=== PATIENT | male | born 1955 | race Caucasian/White ===

== ENCOUNTER → 2018-08-25 | Outpatient (CLI) | payer BC ==
--- NOTE | 2018-08-25 20:41 | CONS ---
CONSULTATION DATE OF SERVICE: 08/25/2018 63-year-old gentleman who has been re-evaluated in [facility] for obstructive sleep apnea-hypopnea syndrome. HISTORY OF PRESENT ILLNESS/SLEEP WAKE EVALUATION: Last time the patient had CPAP titration in our office in the middle of 2011. At that time, he was recommended treatment with CPAP at the pressure of 12 cm of water for obstructive sleep apnea-hypopnea syndrome. The patient continued to use his CPAP equipment in the night but recently developed some problems with his machine. According to his , machine is very high and to the level that she can not sleep with the patient in the same room. Occasionally he started to snore with the machine and he is not sleeping as good as his sleep before. 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 On weekend or days when he is not working, he sleeps from 10 p.m. until 6 a.m. FALLING ASLEEP: No problems with falling asleep. No TV in bedroom. DURING SLEEP: During the sleep, he wakes up from sleep 4 times with 1 episode of nocturia. No history of hypnagogic hallucinations, sleep paralysis or cataplexy. PAST MEDICAL HISTORY: Changed. The patient developed hypertension and is on treatment for hypertension, knee problems, history of sinusitis. MEDICATIONS: Lisinopril, hydrochlorothiazide. SOCIAL HISTORY: Negative for smoking or using alcohol. PAST SURGICAL HISTORY: UPPP, also surgery on the left ankle for fracture and umbilical hernia. REVIEW OF SYSTEMS: Awakenings from sleep even on CPAP, snoring with CPAP, sometimes tiredness and sleepiness on the daytime. PHYSICAL EXAMINATION: During physical exam, a gentleman without distress BP 136/67, HR 101, RR 16, height 5 feet 9 inches, weight 310.5 pounds, which is increasing his weight comparing with the previous visit on 30 pounds. Oropharynx extremely low position of soft palate. Wide neck 19 1/3 inches in circumference. ABDOMEN: Obese. Neck Supple, no JVD. Thyroid is not palpable. LUNGS Clear to percussion and to auscultation. Good air exchange. No wheezing or rhonchi. HEART S1, S2 regular. No murmurs, gallops, or rubs. ABDOMEN: Obese, soft and nontender. Bowel sounds are present. No organomegaly appreciated. EXTREMITIES No clubbing or cyanosis. MOTHER BABY RN Awake, alert, and oriented X3. Cranial nerves 2 to 7 intact. There is no fasciculation or atrophy. noted. No focal deficits observed. IMPRESSION: 1. Obstructive sleep apnea-hypopnea syndrome for many years. The patient continued to use his CPAP every night. Usage of his machine is 100% of the time, average 6.06 hours per night. The patient increased his weight 30 pounds, developed snoring while using his CPAP. 2. Obesity, body mass index 45.7. 3. Hypertension. 4. History of sinusitis. 5. Knee problems. 6. Status post oral surgery for obstructive sleep apnea in the past. 7. Status post umbilical hernia repair. 8. Status post left ankle surgery for the fracture of the ankle. PLAN: 1. Repeat CPAP titration for reevaluation of effective CPAP pressure at the present time. Patient increased his weight about 30 pounds. Has snoring with CPAP and awakenings from sleep. Machine is noisy. We may need to replace the CPAP unit. 2. Losing weight. 3. Sleep hygiene with regular time bed for at least 8 hours. 4. Precautions related to driving. Patient is a fuel oil truck driver. 5. No driving if feeling any sleepiness. The patient is aware about civil and criminal liability for unsafe driving. 6. Sleep hygiene with regular time bed for at least 8 hours. Thank you very much for allowing me to participate in management of your patient. Sincerely, Joby Hess MD, PhD, FAASM Diplomat of [place] [employer] [employer] Extruder Operator Multiple of [facility] [place] MMODL / KRYSTYNAN: [id number] /
== END ==
LOC: SLEEP 15:31
PROVIDERS: ATTEND Internal Medicine
DX: G47.33 Obstructive sleep apnea (adult) (pediatric) (principal); E66.9 Obesity, unspecified; I10 Essential (primary) hypertension; R29.898 Other symptoms and signs involving the musculoskeletal system; Z87.39 Personal history of other diseases of the musculoskeletal system and connective tissue; Z98.890 Other specified postprocedural states; Z68.42 Body mass index [BMI] 45.0-49.9, adult; Z99.89 Dependence on other enabling machines and devices; Z79.899 Other long term (current) drug therapy
CPT/HCPCS: 99211

== ENCOUNTER → 2018-09-23 | Outpatient (CLI) | payer BC ==
--- NOTE | 2018-09-23 12:05 | CT ---
EXAMINATION TYPE: CT angio chest DATE OF EXAM: 09/23/2018 11:44 AM COMPARISON: None HISTORY: Abdominal aortic aneurysm, without rupture CT DLP: 1017 mGycm Automated exposure control for dose reduction was used. CONTRAST: CTA scan of the thorax is performed with IV Contrast, patient injected with 100 mL of Isovue 370, pul monary embolism protocol. . FINDINGS: LUNGS: The lungs are grossly clear, there is no concerning parenchymal mass or nodule identified. T here is no pleural effusion or pneumothorax seen. The tracheobronchial tree is patent. Pain groundgl ass changes are most typical of atelectasis. MEDIASTINUM: There is satisfactory enhancement of the pulmonary artery and its branches, there is no CT evidence for pulmonary embolism. There are no greater than 1 cm hilar or mediastinal lymph nodes. AORTA: At the level of the annulus the aorta measures 3.4 cm. at the level of the aortic sinus of Valsalva aorta measures 4.4 cm At the sinotubular junction aorta measures 3.6 cm At the level the mid ascending aorta measures 4.2 cm Distal ascending aorta measures 3.9 cm Descending thoracic aorta is of normal course and caliber. There is mild ectasia of the aorta with no significant atherosclerotic changes. OTHER: Hepatic steatosis noted. Hypodensity within the kidneys too small to characterize but likely related to simple cysts IMPRESSION: 1. Aortic sinus and measures 4.4 cm slightly prominent compared to the normal diameter (2.9 - 4.2). Remaining portion of the aorta demonstrates very mild prominence of the ascending aorta measuring 4.2 cm compatible with mild aneurysmal dilation.
== END ==
LOC: RADCTMAIN 10:41
PROVIDERS: ATTEND Internal Medicine Cardiovascular Disease
DX: I71.2 Thoracic aortic aneurysm, without rupture (principal)
CPT/HCPCS: 71275; Q9967

== ENCOUNTER → 2018-10-21 | Outpatient (CLI) | payer BC ==
--- NOTE | 2018-10-21 15:49 | XR ---
EXAMINATION TYPE: XR sinus DATE OF EXAM: 10/21/2018 CLINICAL HISTORY: Nasal congestion per order. TECHNIQUE: Parker, Foster, and lateral image of the skull are obtained. COMPARISON: None. FINDINGS: There is nonformed or hypoplastic left frontal sinus The paranasal sinuses including the ri ght frontal and bilateral maxillary sinuses appear well aerated without suspicious abnormal opacifica tion or air-fluid levels. Orbital floors and mayfield are intact. Facial bones appear intact. IMPRESSION: No convincing radiographic evidence for acute paranasal sinusitis.
== END | disposition home or self-care (01) ==
LOC: RADXRYALE 15:27
PROVIDERS: ATTEND Nurse Practitioner Family
DX: R09.81 Nasal congestion (principal)
CPT/HCPCS: 70220

== ENCOUNTER → 2018-12-15 | Outpatient (CLI) | payer BC ==
--- NOTE | 2018-12-15 16:53 | PN ---
PROGRESS NOTE DATE OF SERVICE: 12/15/2018 This patient is a 63-year-old gentleman who has been followed in Sleep Center for treatment of obstructive sleep apnea-hypopnea syndrome. Recently he received a new CPAP unit, and this is his first visit with the new CPAP machine. He feels that when he is starting to use the machine, the pressure is too low for him because the machine starts from 5 cm of water. [place] Sleepiness Scale today is 4. He is able to use equipment every night. I checked his CPAP unit. Range of the pressure is from 5 to15. Most of the time the pressure is 11.8 cm of water. Usage is 100% of the time for more than 4 hours; average 6.1 hours per night. Leak is 13 L/minute, which is in very good range. Apnea-hypopnea index is only 3.0, which is absolutely normal. MEDICATIONS: 1. Lisinopril. 2. Hydrochlorothiazide. 3. Hydrocort on p.r.n. basis for pain. PHYSICAL EXAMINATION: GENERAL: A pleasant patient in no distress. VITAL SIGNS: BP 107/70, HR 99, RR 16, weight 305 pounds, temperature 97.9, oxygen saturation at room air 93%. HEENT: PERRLA, EOMI. Evaluation of oropharynx showed tongue protrudes midline. Extremely low position of soft palate. Mallampati IV. NECK: Supple. No JVD. Thyroid is not palpable. LUNGS: Clear to percussion and to auscultation. Good air exchange. No wheezing or rhonchi. HEART: S1, S2 regular. No murmurs, gallops or rubs. ABDOMEN: Slightly obese. EXTREMITIES: No clubbing or cyanosis. BENDING MACHINE SET UP OPERATOR: Awake, alert, and oriented X3. Cranial nerves 2 to 7 intact. There is no fasciculation or atrophy. noted. No focal deficits observed. IMPRESSION: 1. Obstructive sleep apnea-hypopnea syndrome. Patient demonstrated 100% compliance with treatment, benefitting from treatment. 2. Obesity. 3. Hypertension. 4. History of sinusitis. 5. Knee problems. 6. Status post oral surgery for obstructive sleep apnea in the past. 7. Status post umbilical hernia repair. 8. Status post left ankle surgery for fracture of the ankle in the past. PLAN: 1. I will increase the range of pressure. It will be from 8 to 15 cm of water. 2. Humidity increased to level 7. 3. The patient will continue to use CPAP equipment every night for the whole night. 4. Sleep hygiene with regular time in bed for 7-1/2 to 8 hours. 5. No driving if feeling any sleepiness. 6. We will maintain all necessary prescriptions for the full-face mask, tubes, filters. Thank you very much for allowing me to participate in the management of your patient. Sincerely, Joby Hess MD, PhD, FAASM Diplomat of [place] [employer] [place] [employer] Track Laborer of [facility] [place] MMODL / IJN: [id number] /
== END | disposition home or self-care (01) ==
LOC: SLEEP 15:09
PROVIDERS: ATTEND Internal Medicine
DX: G47.33 Obstructive sleep apnea (adult) (pediatric) (principal); E66.9 Obesity, unspecified; I10 Essential (primary) hypertension; M25.9 Joint disorder, unspecified; Z87.09 Personal history of other diseases of the respiratory system; Z99.89 Dependence on other enabling machines and devices; Z98.890 Other specified postprocedural states; Z79.899 Other long term (current) drug therapy

== ENCOUNTER → 2019-06-22 | Outpatient (CLI) | payer BC ==
[2019-06-22 15:04] LABS: African American GFR (CKD) >90 (>60 ml/min/1.73 sqM); Blood Urea Nitrogen 18 mg/dL (9-20)
--- NOTE | 2019-06-23 03:36 | CT ---
EXAMINATION TYPE: CT angio chest DATE OF EXAM: 06/22/2019 COMPARISON: 09/23/2018 HISTORY: 64-year-old male Thoracic aortic aneurysm. TECHNIQUE: Contiguous axial scanning of the chest performed with IV Contrast, patient injected with 1 00 mL of Isovue 370. Coronal/sagittal MIP reconstructions performed. 3-D reconstructions generated on a dedicated independent workstation. CT DLP: 810.4 mGycm Automated exposure control for dose reduction was used. FINDINGS: Heart normal size without pericardial effusion. Aortic root mildly aneurysmal at 4.1 cm, unchanged. Ascending aorta aneurysmal at 4.5 cm, measuring 4.7 cm, previously, unchanged. Proximal arch aneurysmal at 4.1 cm, measuring 4.4 cm, previously, unchanged. Upper descending thoracic aorta aneurysmal at 4.0 cm, stable. Mid descending thoracic aorta mildly aneurysmal at 3.0 cm, stable. Lower descending thoracic aorta is ectatic at 2.9 cm, stable. Upper abdominal aorta ectatic at 2.7 cm. No aortic dissection. There is variant direct takeoff of the left vertebral artery directly from the aortic arch. Scattered nonenlarged mediastinal lymph nodes are unchanged. No thoracic lymphadenopathy by CT size c riteria. Evaluation of the lungs shows dependent atelectasis. Mild diffuse bronchial wall thickening could rep resent bronchitis or asthma or chronic change. No consolidation or pleural effusion. Visualized upper abdomen shows a stable 1.2 cm cortical cyst upper pole right kidney. Bones: Multiple old healed right-sided rib fracture deformities. IMPRESSION: ANEURYSMAL THORACIC AORTA (AORTIC ROOT 4.1 CM, ASCENDING 4. 5 CM, PROXIMAL ARCH 4.1 CM, AND DESCENDIN G MEASURING UP TO 4.0 CM) WITH MEASUREMENTS RELATIVELY UNCHANGED FROM PRIOR.
== END | disposition home or self-care (01) ==
LOC: RADCTMAIN 14:25
PROVIDERS: ATTEND Internal Medicine Cardiovascular Disease
DX: I71.2 Thoracic aortic aneurysm, without rupture (principal)
CPT/HCPCS: 82565; 84520; 71275; 36415; Q9967

== ENCOUNTER 2020-08-01 07:27 | Day surgery (SDC) | payer BC ==
[2020-07-31 08:32] VITALS: BMI 42.3
[~2020-08-01 07:27] MED LIST: LACTATED RINGERS 1,000 ML IV SCH; LIDOCAINE 1% (10MG/ML) FOR IV START INTRADERMA PRN
[2020-08-01 07:54] VITALS: RESP 18; TEMP 97
[2020-08-01 08:00] LABS: Glucose,Whole Blood 153 mg/dL (75-99)
--- NOTE | 2020-08-01 08:02 | P.GSHP ---
History of Present Illness H&P Date: 08/01/20 Chief Complaint: Screening colonoscopy This a 65-year-old male who presents today for screening colonoscopy. Patient denies a significant GI complaints. Past Medical History Past Medical History: Diabetes Mellitus, Hypertension, Sleep Apnea/CPAP/BIPAP Additional Past Medical History / Comment(s): USES C-PAP History of Any Multi-Drug Resistant Organisms: None Reported Past Surgical History: Hernia Repair, Orthopedic Surgery Additional Past Surgical History / Comment(s): ORIF LT ANKLE WITH HARDWARE REMOVAL. COLONOSCOPY. EYE SX CHILD Past Anesthesia/Blood Transfusion Reactions: Motion Sickness Smoking Status: Never smoker - Past Family History Mother Family Medical History: No Reported History Medications and Allergies Home Medications Medication Instructions Recorded Confirmed Type lisinopriL [Zestril] 5 mg PO HS 07/31/20 07/31/20 History metFORMIN HCL [Glucophage] 500 mg PO HS 07/31/20 07/31/20 History Allergies Allergy/AdvReac Type Severity Reaction Status Date / Time No Known Allergies Allergy Verified 08/01/20 07:43 Surgical - Exam Vital Signs Temp Pulse Resp BP Pulse Ox 97 F L 84 18 124/74 93 L 08/01/20 07:53 08/01/20 07:53 08/01/20 07:53 08/01/20 07:53 08/01/20 07:53 - General well developed, well nourished, no distress - Eyes PERRL - ENT normal pinna - Neck no masses - Respiratory normal expansion - Cardiovascular Rhythm: regular - Abdomen Abdomen: soft, non tender Results - Labs Abnormal Lab Results - Last 24 Hours (Table) 08/01/20 Range/Units 07:58 POC Glucose (mg/dL) 153 H (75-99) mg/dL Assessment and Plan Assessment: We'll perform screening colonoscopy.
[2020-08-01] MEDS ORDERED: PROPOFOL 10 MG/ML 20 ML VIAL IV ONE (08:05)
--- NOTE | 2020-08-01 08:16 | P.OP ---
Date of Procedure: 08/01/20 Preoperative Diagnosis: Screening colonoscopy Postoperative Diagnosis: Diverticulosis Procedure(s) Performed: Colonoscopy Anesthesia: MAC Surgeon: Wil Jasmine Pathology: none sent Condition: stable Disposition: PACU Description of Procedure: The patient's placed on the endoscopy table in the lateral position. He received IV sedation. Digital rectal exam was performed which revealed no rales. The flexible colonoscope was then placed patient anus passed throughout the entire colon. The ileocecal valve was visualized. The cecum, ascending and transverse colon appeared normal. The descending and sigmoid colon was examined. There is evidence of diverticular changes. Scope summer back the re ctum and this appeared normal. Scope was brought patient.
[2020-08-01 08:41] VITALS: BP 117/78; PULSE 73
== END 2020-08-01 09:00 | disposition home or self-care (01) ==
LOC: ORWHC2ENDO 07:27
PROVIDERS: ATTEND Surgery
DX: Z12.11 Encounter for screening for malignant neoplasm of colon (principal); K57.30 Diverticulosis of large intestine without perforation or abscess without bleeding; I10 Essential (primary) hypertension; G47.33 Obstructive sleep apnea (adult) (pediatric); Z99.89 Dependence on other enabling machines and devices; E11.9 Type 2 diabetes mellitus without complications; K21.9 Gastro-esophageal reflux disease without esophagitis; Z79.84 Long term (current) use of oral hypoglycemic drugs; Z79.899 Other long term (current) drug therapy; Z98.890 Other specified postprocedural states
CPT/HCPCS: J2704; G0121

== ENCOUNTER → 2020-08-14 | Outpatient (CLI) | payer BC ==
[2020-08-14 14:09] LABS: African American GFR (CKD) >90 (>60 ml/min/1.73 sqM); Blood Urea Nitrogen 24 mg/dL (9-20); Non-African American GFR(CKD) >90 (>60 ml/min/1.73 sqM)
--- NOTE | 2020-08-14 16:09 | CT ---
EXAMINATION TYPE: CT chest w con DATE OF EXAM: 08/14/2020 COMPARISON: 06/22/2019 HISTORY: 65-year-old male I71.4, thoracic aortic aneurysm follow up TECHNIQUE: Contiguous axial scanning of the chest after the administration of 100 mL of Isovue 300. Coronal/sagittal reconstructions performed. CT DLP: 627.8mGycm. Automatic exposure control utilized for a dose reduction. FINDINGS: Heart normal size without pericardial effusion. Aortic root mildly aneurysmal at 4.2 cm versus 4.1 cm, previously. Ascending aorta aneurysmal at 4.7 cm versus 4.5 cm, previously. Bovine configuration to the aortic arch. Additional direct takeoff of a hypoplastic left vertebral ar jocelyn directly from the aortic arch. Aneurysm upper descending thoracic aorta at 3.7 cm versus 3.8 cm, previously. Ectatic lower descending thoracic aorta at 2.9 cm, unchanged. The prior exam is remeasured at the same level as on the present study to provide consistency. No thoracic lymphadenopathy by CT size criteria. Mild strandy atelectasis in the lower lungs. No consolidation or pleural effusion. There appears to be underlying fatty infiltration of the liver. Underlying renal cysts measuring up t o 2.0 cm redemonstrated. Bones: Old healed right lateral rib fracture deformities. Mild degenerative disc disease within the t horacic spine. IMPRESSION: 1. Aneurysmal thoracic aorta redemonstrated, overall stable: 2. Aortic root 4.2 cm versus 4.1 cm, previously. 3. Ascending aorta 4.7 cm versus 4.5 cm, previously. 4. Upper descending thoracic aorta 3.7 cm versus 3.8 cm, previously.
== END | disposition home or self-care (01) ==
LOC: RADCTMAIN 13:23
PROVIDERS: ATTEND Internal Medicine Cardiovascular Disease
DX: I71.2 Thoracic aortic aneurysm, without rupture (principal); I71.4 Abdominal aortic aneurysm, without rupture
CPT/HCPCS: 82565; 84520; 71260; Q9967

== ENCOUNTER → 2020-08-21 | Outpatient (CLI) | payer BC ==
--- NOTE | 2020-08-21 20:38 | SFUN ---
SLEEP CENTER FOLLOW UP NOTE DATE OF SERVICE: 08/21/2020. ADDENDUM: 1. Rasheeda. 2. I discussed with the patient option to use a nasal strips also to improve his breathing through the nose while he is using CPAP. MMNURY / KRYSTYNAN: [id number] /
--- NOTE | 2020-08-21 20:53 | SFUN ---
SLEEP CENTER FOLLOW UP NOTE DATE OF SERVICE: 08/21/2020 This patient is a 65-year-old gentleman who has been followed in Sleep Center for treatment of obstructive sleep apnea-hypopnea syndrome. Patient successfully continues to use his CPAP equipment. Sometimes he feels that there is a leak from his full-face mask. Sometimes he feels a dry mouth, although he knows how to regulate the humidity and humidifier. He told me that he already tried to adjust it to the maximal level. [place] Sleepiness Scale today is 4. I checked his CPAP unit. CPAP pressure is in the range of 8 to 15. Average pressure is 11.9. Usage is 100% of nights, with average usage 6.2 hours per night. Leak is only 4 L/minute, which is perfect. Apnea-hypopnea index is only 0.7. [place] Sleepiness Scale is 4. MEDICATIONS: Metformin once a day, lisinopril/hydrochlorothiazide once a day, hydrocodone 5/325 several times a month. PHYSICAL EXAMINATION: GENERAL: A pleasant patient in no distress. VITAL SIGNS: BP 112/82, HR 90, RR 15, height 5 feet 9 inches, weight 298 pounds. Body mass index 44, temperature 97.3, oxygen saturation at room air 96%. HEENT: PERRLA, EOMI. Evaluation of oropharynx showed tongue protrudes midline. Extremely low position of soft palate. Mallampati IV. NECK: Supple. No JVD. Thyroid is not palpable. LUNGS: Clear to percussion and to auscultation. Good air exchange. No wheezing or rhonchi. HEART: S1, S2 regular. No murmurs, gallops or rubs. ABDOMEN: Obese. EXTREMITIES: No clubbing or cyanosis. BONE GRINDER: Awake, alert, and oriented X3. Cranial nerves 2 to 7 intact. There is no fasciculation or atrophy. noted. No focal deficits observed. IMPRESSION: 1. Obstructive sleep apnea-hypopnea syndrome. Patient demonstrated 100% compliance with treatment, benefitting from treatment. 2. Hypertension. 3. Obesity. 4. History of sinusitis. 5. Knee problems. 6. Status post oral surgery for obstructive sleep apnea in the past. 7. Status post umbilical hernia repair. 8. Status post left ankle surgery for fractured ankle in the past. PLAN: 1. Patient will continue to use PAP equipment every night for the whole night. 2. Sleep hygiene with regular time in bed for at least 7-1/2 to 8 hours. 3. Precautions related to driving. No driving if feeling sleepiness. 4. I will maintain all necessary prescription for PAP supplies including mask, tube, filters. 5. Watching weight. 6. No driving if feeling sleepiness. 7. Follow-up visit in 6 months or earlier if patient has any problems. I spent 25 minutes with the patient. Thank you very much for allowing me to participate in the management of your patient. Sincerely, Joby Hess MD, PhD, FAASM Diplomat of [place] [employer] [employer] Concrete Finishing Machine Operator of [facility] [place] MMODL / IJN: [id number] /
== END | disposition home or self-care (01) ==
LOC: SLEEP 14:14
PROVIDERS: ATTEND Internal Medicine
DX: G47.33 Obstructive sleep apnea (adult) (pediatric) (principal); I10 Essential (primary) hypertension; E66.9 Obesity, unspecified; M25.869 Other specified joint disorders, unspecified knee; Z98.890 Other specified postprocedural states; Z79.84 Long term (current) use of oral hypoglycemic drugs; Z79.899 Other long term (current) drug therapy; Z99.89 Dependence on other enabling machines and devices

== ENCOUNTER → 2021-02-06 | Outpatient (CLI) | payer BC ==
--- NOTE | 2021-02-06 20:41 | SFUN ---
SLEEP CENTER FOLLOW UP NOTE DATE OF SERVICE: 02/06/2021 This 65-year-old gentleman has been followed in Sleep Center for treatment of obstructive sleep apnea-hypopnea syndrome. The patient continues to use his CPAP equipment every night for the whole night. Sometimes he feels that there is a leak from the mask, which wakes him up. Otherwise, he sleeps well. [place] Sleepiness Scale today is 5, which is in normal range. I checked his CPAP unit. Range of the pressure is 8 to 15, automatic regimen. Average pressure of 13 cm of water. Usage is 30/30 nights for more than 4 hours, average 6.4 hours per night. Leak is 5 L/minute, which is totally normal range. Apnea-hypopnea index only 3.0, which is also normal. MEDICATIONS: Lisinopril, metformin, hydrocodone. PHYSICAL EXAMINATION: GENERAL: A pleasant patient in no distress. VITAL SIGNS: BP 104/71, HR 88, RR 12, height 5 feet 6-1/2 inches, weight 295.4 pounds, body mass index 44.2, temperature 97.1. Oxygen saturation at room air 95%. HEENT: PERRLA, EOMI. Evaluation of oropharynx showed tongue protrudes midline. Extremely low position of soft palate. Mallampati IV. NECK: Supple. No JVD. Thyroid is not palpable. LUNGS: Clear to percussion and to auscultation. Good air exchange. No wheezing or rhonchi. HEART: S1, S2 regular. No murmurs, gallops or rubs. ABDOMEN: Obese. EXTREMITIES: No clubbing or cyanosis. PROP AND EFFECTS DESIGNER: Awake, alert, and oriented X3. Cranial nerves 2 to 7 intact. There is no fasciculation or atrophy. noted. No focal deficits observed. IMPRESSION: 1. Obstructive sleep apnea-hypopnea syndrome. Patient demonstrated 100% compliance with treatment, benefitting from treatment. 2. Obesity. 3. Hypertension. 4. Sinusitis. 5. Knee problems. 6. Status post oral surgery for obstructive sleep apnea in the past. 7. Status post umbilical hernia repair. 8. Status post left ankle surgery for fracture of the ankle. PLAN: 1. Continue treatment with CPAP every night for the whole night. 2. Patient may continue to use a chin strap. 3. Patient will continue to use PAP equipment every night for the whole night. 4. Sleep hygiene with regular time in bed for at least 7-1/2 to 8 hours. 5. Precautions related to driving. No driving if feeling sleepiness. 6. I will maintain all necessary prescription for PAP supplies including mask, tube, filters. 7. Watching weight. 8. Follow-up visit in 6 months or earlier if patient has any problems. I spent more than 30 minutes with patient and doing documentation. Thank you very much for allowing me to participate in the management of your patient. Sincerely, Joby Hess MD, PhD, FAASM Diplomat of [place] [employer] [employer] Campaign Consultant of [facility] [place] MMODL / IJN: [id number] /
== END ==
LOC: SLEEP 14:14
PROVIDERS: ATTEND Internal Medicine
DX: G47.33 Obstructive sleep apnea (adult) (pediatric) (principal); E66.9 Obesity, unspecified; I10 Essential (primary) hypertension; J32.9 Chronic sinusitis, unspecified; M79.89 Other specified soft tissue disorders; Z98.890 Other specified postprocedural states; Z68.41 Body mass index [BMI] 40.0-44.9, adult; Z79.899 Other long term (current) drug therapy

== ENCOUNTER → 2022-01-13 | Outpatient (CLI) | payer BC ==
[2022-01-13 14:42] LABS: African American GFR (CKD) >90 (>60 ml/min/1.73 sqM); Blood Urea Nitrogen 28 mg/dL (9-20); Non-African American GFR(CKD) >90 (>60 ml/min/1.73 sqM)
--- NOTE | 2022-01-13 16:02 | CT ---
EXAMINATION TYPE: CT angio chest DATE OF EXAM: 01/13/2022 3:57 PM COMPARISON: 08/14/2020 HISTORY: F/U THORACIC AORTIC ANEURYSM CT DLP: 1720 mGycm Automated exposure control for dose reduction was used. CONTRAST: CTA scan of the thorax is performed without and with IV Contrast, patient injected with 100 mL of Iso shila 370, pulmonary embolism protocol. . FINDINGS: Heart normal size without pericardial effusion. Aortic root mildly aneurysmal at 4.2 cm versus 4.1 cm , previously. Ascending aorta aneurysmal at 4.7 cm versus 4.5 cm, previously. Bovine configuration to the aortic arch. Additional direct takeoff of a hypoplastic left vertebral artery directly from the aortic arch. Aneurysm upper descending thoracic aorta at 3.8 cm versus 3.8 cm, previously. Ectatic lo wer descending thoracic aorta at 2.9 cm, unchanged. The prior exam is remeasured at the same level as on the present study to provide consistency. No tho racic lymphadenopathy by CT size criteria Mild strandy atelectasis in the lower lungs. No consolidation or pleural effusion. There appears to b e underlying fatty infiltration of the liver. Osseous structures: Old healed right lateral rib fracture deformities. Mild degenerative disc disease within the thoracic spine. IMPRESSION: STABLE ANEURYSMAL DILATION OF THE THORACIC AORTA WITH A MAXIMAL DIMENSION OF 4.7 CM IN THE ASCENDING AORTA.
== END | disposition home or self-care (01) ==
LOC: RADCTMAIN 13:58
PROVIDERS: ATTEND Thoracic Surgery (Cardiothoracic Vascular Surgery)
DX: I71.2 Thoracic aortic aneurysm, without rupture (principal)
CPT/HCPCS: 82565; 84520; 71275; 36415; Q9967

== ENCOUNTER → 2022-07-16 | Outpatient (CLI) | payer BC ==
--- NOTE | 2022-07-16 15:04 | P.PN ---
Subjective DATE: 07/16/2022 FOLLOW UP VISIT. Patient with obstructive sleep apnea hypopnea syndrome return to sleep center for follow-up visit. Information from previous visit have been reviewed. Patient is using PAP equipment every night for the whole night, getting PAP supplies in time. The patient does not have significant problems with the mask, PAP unit and humidification. [place] sleepiness scale is 5, which is normal. I checked PAP unit. Air filter is in bad condition. PAP unit pressure 8-15, average 12.8 cm H2O. Usage is 100 % for more then 4 hours, average 5.9 hours per night. Leak is 0 l/m, which is perfect. Apnea Hypopnea Index is 2.8, which is normal. I checked information about apnea-hypopnea index for the last months and then some days there is a fluke duration over apnea-hypopnea index up to around 9. MEDICATIONS:1. Lisinopril-hydrochlorothiazide 20-25 mg once a day 2. Metformin 500 mg 4 tablets a day 3. Januvia During physical exam: GENERAL: A pleasant patient without any distress. VITAL SIGNS: BP 127/83, HR 76, RR 14 , weight 292.0, temperature 97.5, oxygen saturation at room air 95 % . HEENT: PERRLA, EOMI.low position of soft palate, Mallapati 4 . NECK: Supple. No JVD. LUNGS: Clear to percussion and to auscultation. Good air exchange. No wheezing or rhonchi. HEART: S1, S2 regular. ABDOMEN: Soft and nontender. Obese EXTREMITIES: No clubbing or cyanosis. SETTER OUT: Awake, alert, and oriented x3. No focal deficit. Impressions: 1. Obstructive sleep apnea-hypopnea syndrome. Patient demonstrated great compliance with treatment, benefiting from treatment. 2. Obesity. 3. Hypertension. 4. Diabetes mellitus. 5. Sinusitis. 6. Knee problems. 7. Status post surgical treatment for obstructive sleep apnea hypopnea syndrome in the past. 8. Status post umbilical hernia repair. 9. Status post left ankle surgical treatment for fracture. Plan: 1. Continue using PAP equipment every night for the whole night. I increased maximal level of pressure to 16 cm of water. 2. To change air filter at least 1-2 times per month. 3. PAP unit should stay lower then position of the head. 4. Advised patient to remove all remaining water from humidifier canister daily and make it dry after each usage. Refill canister with fresh distilled water before each usage. 5. Sleep hygiene with regular time in bed for at least 8 hours. 6. Precautions related to driving. No driving if feel any sleepiness. 7. I will maintain prescription for PAP supplies including mask, tube, filters. 8. Follow up visit in 6 months or earlier if patient has any problems. 9. Watching weight. Thank you very much for allowing me to participate in the management of your patient. Joby Hess MD, PhD, FAASM. Diplomat of [place] [employer], Sleep Medicine Board by [place] Public Administration Professor of [facility] [place]
== END | disposition home or self-care (01) ==
LOC: SLEEP 14:20
PROVIDERS: ATTEND Internal Medicine
DX: Z53.9 Procedure and treatment not carried out, unspecified reason (principal)
CPT/HCPCS: 99212

== ENCOUNTER → 2023-03-04 | Outpatient (CLI) | payer BC ==
--- NOTE | 2023-03-04 15:33 | P.PN ---
Subjective DATE: 03/04/2023 FOLLOW UP VISIT. Patient with obstructive sleep apnea hypopnea syndrome return to sleep center for follow-up visit. Information from previous visit have been reviewed. Patient is using PAP equipment every night for the whole night, getting PAP supplies in time. The patient does not have significant problems with the mask, PAP unit and humidification. [place] sleepiness scale is 5, which is normal. I checked information from PAP unit. PAP unit pressure 8-16, average 12.2 cm H2O. Usage is 100 % for more then 4 hours, average 6 hours per night. Leak is 0 l/m, which is in acceptable range. Apnea Hypopnea Index is 1.4, which is normal. Sometimes patient wakes up from sleep and feel that pressure is too high. MEDICATIONS:1. Losartan 5 mg once a day 2. Metformin 3. Lanuvia During physical exam: GENERAL: A pleasant patient without any distress. VITAL SIGNS: BP 104/62, HR 103, RR 16 , weight 296, temperature 97.0, oxygen saturation at room air 95% . HEENT: PERRLA, EOMI.low position of soft palate, Mallapati 4 . NECK: Supple. No JVD. LUNGS: Clear to percussion and to auscultation. Good air exchange. No wheezing or rhonchi. HEART: S1, S2 regular. ABDOMEN: Soft and nontender.[] EXTREMITIES: No clubbing or cyanosis. GRAIN BROKER AND MARKET OPERATOR: Awake, alert, and oriented x3. No focal deficit. Impressions: 1. Obstructive sleep apnea-hypopnea syndrome. Patient demonstrated great compliance with treatment, benefiting from treatment. 2. Diabetes mellitus, according to patient recent hemoglobin A1c 6.7. 3. Obesity, BMI 45.5. 4. Hypertension. 5. History of sinus problems. 6. History of knee problems. I changed range of the pressure in CPAP unit to 813 centimeters of water. Plan: 1. Continue using PAP equipment every night for the whole night. 2. To change air filter at least 1-2 times per month. 3. PAP unit should stay lower then position of the head. 4. Advised patient to remove all remaining water from humidifier canister daily and make it dry after each usage. Refill canister with fresh distilled water before each usage. 5. Sleep hygiene with regular time in bed for at least 8 hours. 6. Precautions related to driving. No driving if feel any sleepiness. 7. I will maintain prescription for PAP supplies including mask, tube, filters. 8. Watching and losing weight. 9. Follow up visit in 6 months or earlier if patient has any problems. Thank you very much for allowing me to participate in the management of your patient. Joby Hess MD, PhD, FAASM. Diplomat of [place], Sleep Medicine Board by [employer] Brush Head Maker of [facility] [place]
== END ==
LOC: 3 N SLEEP 14:31
PROVIDERS: ATTEND Internal Medicine
DX: G47.33 Obstructive sleep apnea (adult) (pediatric) (principal); E11.9 Type 2 diabetes mellitus without complications; E66.9 Obesity, unspecified; I10 Essential (primary) hypertension; J32.9 Chronic sinusitis, unspecified; Z68.42 Body mass index [BMI] 45.0-49.9, adult; Z99.89 Dependence on other enabling machines and devices; Z87.39 Personal history of other diseases of the musculoskeletal system and connective tissue; Z79.899 Other long term (current) drug therapy; Z79.84 Long term (current) use of oral hypoglycemic drugs
CPT/HCPCS: 99212

== ENCOUNTER → 2023-08-25 | Outpatient (CLI) | payer BC ==
--- NOTE | 2023-08-25 17:48 | P.PN ---
Subjective DATE: 08/25/2023 FOLLOW UP VISIT. Patient with obstructive sleep apnea hypopnea syndrome return to sleep center for follow-up visit. Information from previous visit have been reviewed. Patient is using PAP equipment every night for the whole night, getting PAP supplies in time. The patient does not have significant problems with the mask, PAP unit and humidification. [place] sleepiness scale is 8, which is normal. I checked information from PAP unit. PAP unit pressure 8-13, average 11.9 cm H2O. Usage is 100 % for more then 4 hours, average 6 hours per night. Leak is 0 l/m, which is in acceptable range. Apnea Hypopnea Index is borderline 5.2. MEDICATIONS:1. Metformin 500 mg 4 tablets a day 2. Januvia 100 mg once a day 3. Lisinopril/hydrochlorothiazide 20-25 mg once a day During physical exam: GENERAL: A pleasant patient without any distress. VITAL SIGNS: BP 118/78, HR 101, RR 16, weight 299.2, temperature 97.6, oxygen saturation at room air 95 % . HEENT: PERRLA, EOMI.low position of soft palate, Mallapati 4 . NECK: Supple. No JVD. LUNGS: Clear to percussion and to auscultation. Good air exchange. No wheezing or rhonchi. HEART: S1, S2 regular. ABDOMEN: Soft and nontender. Obese EXTREMITIES: No clubbing or cyanosis. MEDICAL COST CONSULTANT: Awake, alert, and oriented x3. No focal deficit. I increased range of the pressure in CPAP unit to 514 centimeters of water. Impressions: 1. Obstructive sleep apnea-hypopnea syndrome. Patient demonstrated great compliance with treatment, benefiting from treatment. 2. Diabetes mellitus. 3. Obesity, patient increased weight on 3 pounds comparing with previous visit. 4. Hypertension. 5. History of knee problems. 6. History of sinus problems. Plan: 1. Continue using PAP equipment every night for the whole night. 2. To change air filter at least 1-2 times per month. 3. PAP unit should stay lower then position of the head. 4. Advised patient to remove all remaining water from humidifier canister daily and make it dry after each usage. Refill canister with fresh distilled water before each usage. 5. Sleep hygiene with regular time in bed for at least 8 hours. 6. Precautions related to driving. No driving if feel any sleepiness. 7. I will maintain prescription for PAP supplies including mask, tube, filters. 8. Follow up visit in 6 months or earlier if patient has any problems. 9. Watching and losing weight. Thank you very much for allowing me to participate in the management of your patient. Joby Hess MD, PhD, FAASM. Diplomat of [employer], Sleep Medicine Board by [employer] Director Business Systems of [facility] [place]
== END ==
LOC: 3 N SLEEP 14:55
PROVIDERS: ATTEND Internal Medicine
DX: G47.33 Obstructive sleep apnea (adult) (pediatric) (principal); E11.9 Type 2 diabetes mellitus without complications; E66.9 Obesity, unspecified; I10 Essential (primary) hypertension; Z96.659 Presence of unspecified artificial knee joint; Z86.69 Personal history of other diseases of the nervous system and sense organs; Z99.89 Dependence on other enabling machines and devices; Z79.84 Long term (current) use of oral hypoglycemic drugs; Z79.899 Other long term (current) drug therapy
CPT/HCPCS: 99212

== ENCOUNTER → 2024-03-08 | Outpatient (CLI) | payer MEDICARE ==
[2024-03-08 14:29] VITALS: BP 109/73; PULSE 68; RESP 16; TEMP 98
--- NOTE | 2024-03-08 18:25 | P.PROGSL ---
Subjective DATE: 03/08/2024 FOLLOW UP VISIT. Patient with obstructive sleep apnea hypopnea syndrome return to sleep center for follow-up visit. Information from previous visit have been reviewed. Patient is using PAP equipment every night for the whole night, getting PAP supplies in time. The patient does not have significant problems with the mask, PAP unit and humidification. [place] sleepiness scale is 4, which is normal. I checked PAP unit. Heated humidifier does not work well PAP unit pressure 8-14, average 10.6 cm H2O. Usage is 100% for more then 4 hours, average 7 hours per night. Leak is 0 l/m, which is in acceptable range. Apnea Hypopnea Index is 6.1, which is normal. MEDICATIONS: Please see below During physical exam: GENERAL: A pleasant patient without any distress. VITAL SIGNS: Please see below. HEENT: PERRLA, EOMI.low position of soft palate, Mallapati 4 . NECK: Supple. No JVD. LUNGS: Clear to percussion and to auscultation. Good air exchange. No wheezing or rhonchi. HEART: S1, S2 regular. ABDOMEN: Soft and nontender.[] EXTREMITIES: No clubbing or cyanosis. TAR MAN: Awake, alert, and oriented x3. No focal deficit. Impressions: 1. Obstructive sleep apnea-hypopnea syndrome. Patient demonstrated great compliance with treatment, benefiting from treatment. 2. Obesity, BMI 41.5, patient lost 25 pounds comparing with previous visit. 3. Hypertension. 4. Diabetes mellitus. 5. History of sinuses problems. 6. History of knee problems. Plan: 1. Continue using PAP equipment every night for the whole night. Prescription to replace CPAP unit, because heated humidifier does not work well and CPAP unit is old. 2. To change air filter at least 1-2 times per month. 3. PAP unit should stay lower then position of the head. 4. Advised patient to remove all remaining water from humidifier canister daily and make it dry after each usage. Refill canister with fresh distilled water before each usage. 5. Sleep hygiene with regular time in bed for at least 8 hours. 6. Precautions related to driving. No driving if feel any sleepiness. 7. I will maintain prescription for PAP supplies including mask, tube, filters. 8. Watching weight. 9. Follow up visit in 1-3 months after patient will get new CPAP unit. Thank you very much for allowing me to participate in the management of your patient. Joby Hess MD, PhD, FAASM. Diplomat of [place] [employer], Sleep Medicine Board by [employer] Bed Spring Maker of [facility] [place] Objective - Vital Signs Vital Signs: Vital Signs Temp 98 F 03/08/24 14:27 Pulse 68 03/08/24 14:27 Resp 16 03/08/24 14:27 BP 109/73 03/08/24 14:27 Pulse Ox 97 03/08/24 14:27 FiO2 Intake & Output 03/07/24 03/08/24 03/08/24 18:59 06:59 18:59 Weight 123.831 kg Home Medications: Home Medications Medication Instructions Recorded Confirmed Type lisinopriL [Zestril] 5 mg PO HS 07/31/20 03/08/24 History metFORMIN HCL [Glucophage] 500 mg PO HS 07/31/20 03/08/24 History Aspirin EC [Ecotrin Low Dose] 81 mg PO DAILY 03/08/24 03/08/24 History sitaGLIPtin [Januvia] 100 mg PO DAILY 03/08/24 03/08/24 History
== END ==
LOC: 3 N SLEEP 13:52
PROVIDERS: ATTEND Internal Medicine
DX: G47.33 Obstructive sleep apnea (adult) (pediatric) (principal); E66.9 Obesity, unspecified; I10 Essential (primary) hypertension; E11.9 Type 2 diabetes mellitus without complications; Z99.89 Dependence on other enabling machines and devices; Z87.39 Personal history of other diseases of the musculoskeletal system and connective tissue; Z87.09 Personal history of other diseases of the respiratory system; Z68.41 Body mass index [BMI] 40.0-44.9, adult; Z79.84 Long term (current) use of oral hypoglycemic drugs; Z79.899 Other long term (current) drug therapy
CPT/HCPCS: 99212

== ENCOUNTER → 2025-01-31 | Outpatient (CLI) | payer MEDICARE ==
[2025-01-31 14:50] VITALS: BP 134/86; PULSE 61; RESP 16; TEMP 97.6
--- NOTE | 2025-01-31 15:21 | P.PROGSL ---
Subjective DATE: 01/31/2025 FOLLOW UP VISIT. Patient with obstructive sleep apnea hypopnea syndrome return to sleep center for follow-up visit. Information from previous visit have been reviewed. Patient is using PAP equipment every night for the whole night, getting PAP supplies in time. The patient does not have significant problems with the mask, PAP unit and humidification. [place] sleepiness scale is 2, which is normal. I checked information from PAP unit. PAP unit pressure 8-14, average 11.7 cm H2O. Usage is 100% for more then 4 hours, average 6.7 hours per night. Leak is perfect 0 l/m. Apnea Hypopnea Index is 2.9, which is normal. MEDICATIONS have been reviewed, please see below. During physical exam: GENERAL: A pleasant patient without any distress. VITAL SIGNS: Please see below, weight is 283 lbs. HEENT: PERRLA, EOMI.low position of soft palate, Mallapati 4 . NECK: Supple. No JVD. LUNGS: Clear to percussion and to auscultation. Good air exchange. No wheezing or rhonchi. HEART: S1, S2 regular. ABDOMEN: Soft and nontender. Obese EXTREMITIES: No clubbing or cyanosis. PATIENT SUPPORT REPRESENTATIVE: Awake, alert, and oriented x3. No focal deficit. Impressions: 1. Obstructive sleep apnea-hypopnea syndrome. Patient demonstrated great compliance with treatment, benefiting from treatment. 2. Obesity, BMI 42.7. 3. Hypertension. 4. Diabetes mellitus, recent HbA1c according to patient 6.7. 5. History of sinus problems. 6. History of knee problems. Plan: 1. Continue using PAP equipment every night for the whole night. 2. Sleep hygiene with regular time in bed for at least 7.5-8 hours 3. PAP unit should stay lower then position of the head. 4. Advised patient to remove all remaining water from humidifier canister daily and make it dry after each usage. Refill canister with fresh distilled water before each usage. 5. Watching and losing weight. 6. Precautions related to driving. No driving if feel any sleepiness. 7. I will maintain prescription for PAP supplies including mask, tube, filters. 8. Follow up visit in 12 months or earlier if patient has any problems. Thank you very much for allowing me to participate in the management of your patient. Joby Hess MD, PhD, FAASM. Diplomat of [employer], Sleep Medicine Board by [employer] Administrator of [facility] [place] Objective - Vital Signs Vital Signs: Vital Signs Temp 97.6 F 01/31/25 14:49 Pulse 61 01/31/25 14:49 Resp 16 01/31/25 14:49 BP 134/86 01/31/25 14:49 Pulse Ox 98 01/31/25 14:49 FiO2 Intake & Output 01/30/25 01/31/25 01/31/25 18:59 06:59 18:59 Weight 128.367 kg Home Medications: Home Medications Medication Instructions Recorded Confirmed Type lisinopriL [Zestril] 5 mg PO HS 07/31/20 01/31/25 History metFORMIN HCL [Glucophage] 500 mg PO HS 07/31/20 01/31/25 History Aspirin EC [Ecotrin Low Dose] 81 mg PO DAILY 03/08/24 01/31/25 History sitaGLIPtin [Januvia] 100 mg PO DAILY 03/08/24 01/31/25 History
== END ==
LOC: 3 N SLEEP 13:57
PROVIDERS: ATTEND Internal Medicine
DX: G47.33 Obstructive sleep apnea (adult) (pediatric) (principal); E66.9 Obesity, unspecified; I10 Essential (primary) hypertension; E11.9 Type 2 diabetes mellitus without complications; Z98.890 Other specified postprocedural states; Z68.41 Body mass index [BMI] 40.0-44.9, adult; Z87.09 Personal history of other diseases of the respiratory system; Z99.89 Dependence on other enabling machines and devices
CPT/HCPCS: 99212